=== PATIENT | male | born 1980 | race Caucasian/White ===

== ENCOUNTER 2024-03-25 07:30 | Day surgery (SDC) | payer OTHER ==
[~2024-03-25] VITALS: Ht 167.6 cm; Wt 83.9 kg
[2024-03-25] MEDS ORDERED: fentaNYL citrate 0.05 MG/ML VIAL ONE (08:29)
[2024-03-25] MEDS: fentaNYL citrate 0.05 MG/ML VIAL IVP ONE (08:51)
[2024-03-25] MEDS: LIDOCAINE 2% 100 MG/5 ML UJET TP ONE (09:01)
== END 2024-03-25 10:02 | disposition home or self-care (01) ==
LOC: MMU 07:30 → MOR 07:30
PROVIDERS: ATTEND Internal Medicine Gastroenterology
DX: K62.5 Hemorrhage of anus and rectum (principal); K64.4 Residual hemorrhoidal skin tags; E11.9 Type 2 diabetes mellitus without complications; E78.00 Pure hypercholesterolemia, unspecified; Z86.010 Personal history of colon polyps; Z79.899 Other long term (current) drug therapy; Z98.890 Other specified postprocedural states
CPT/HCPCS: 45378; J3010